=== PATIENT | male | born 1995 | race Caucasian/White ===

== ENCOUNTER 2018-05-08 09:55 | Emergency (ER) | payer OTHER ==
[~2018-05-08] VITALS: Ht 170.2 cm; Wt 72.6 kg
[2018-05-09] MEDS ORDERED: PANTOPRAZOLE SO40 MG PO (09:46)
[2018-05-09] MEDS ORDERED: ACIDOPHILUS1 EAC1 PO (09:46)
[2018-05-09] MEDS ORDERED: METRONIDAZOLE500 MG PO (09:46)
[2018-05-09] MEDS ORDERED: CIPRO500 MG PO (09:46)
[2018-05-09] MEDS ORDERED: DICY20TA PO (09:46)
== END 2018-05-09 10:31 | disposition home or self-care (01) ==
LOC: ER 09:55 → SEC-K 19:07 → ER 19:07
DX: A09 Infectious gastroenteritis and colitis, unspecified (principal); R10.84 Generalized abdominal pain

== ENCOUNTER 2023-06-20 12:48 | Emergency (ER) | payer OTHER ==
[~2023-06-20] VITALS: Ht 170.2 cm; Wt 79.4 kg
[~2023-06-20 12:48] MED LIST: ACIDOPHILUS1 EAC1 PO; CIPRO500 MG PO; DICY20TA PO; METRONIDAZOLE500 MG PO; PANTOPRAZOLE SO40 MG PO
[2023-06-20] MEDS ORDERED: ESCITALOPRAM OXA5 MG PO (13:27)
[2023-06-20] MEDS ORDERED: DOLOGEN CAPLET1 EACH PO (15:06)
[2023-06-20] MEDS ORDERED: OSEL75CA PO (15:06)
[2023-06-20] MEDS ORDERED: TUSNEL LIQUID178 ML PO (15:09)
== END 2023-06-20 15:17 | disposition home or self-care (01) ==
LOC: ER 12:48
DX: J09.X2 Influenza due to identified novel influenza A virus with other respiratory manifestations (principal); R50.9 Fever, unspecified; Z20.822 Contact with and (suspected) exposure to COVID-19